=== PATIENT | male | born 1955 | race Caucasian/White ===

== ENCOUNTER 2021-02-10 06:06 | Day surgery (SDC) | payer BC, OTHER ==
[2021-02-05 16:54] VITALS: BMI 28.7
[2021-02-10] MEDS ORDERED: MIDAZOLAM HCL 2 MG/2 ML SINGLE DOSE VIAL ONE (06:51)
[2021-02-10] MEDS ORDERED: ROPIVACAINE HCL 0.5% 30ML VIAL ONE (06:51)
[2021-02-10] MEDS ORDERED: EPINEPHrine 1:1,000 1 MG/1 ML - 30ML VIAL (INJECTION) ONE (07:19)
[2021-02-10] MEDS ORDERED: BUPIVACAINE HCL/EPINEPHRINE/PF 30 ML VIAL IJ ONE (07:19)
[2021-02-10] MEDS ORDERED: PROPOFOL 20 ML ONE ×3 (07:39)
[2021-02-10] MEDS ORDERED: SUCCINYLCHOLINE CHLORIDE 200 MG/10 ML SYRINGE ONE (07:39)
[2021-02-10] MEDS ORDERED: ONDANSETRON 4 MG/2 ML VIAL ONE (07:53)
[2021-02-10] MEDS ORDERED: DEXAMETHASONE SOD PHOSPHATE 4 MG/1 ML VIAL ONE (07:53)
[2021-02-10] MEDS ORDERED: ceFAZolin SODIUM 1 GM VIAL ONE (07:53)
[2021-02-10] MEDS ORDERED: KETOROLAC TROMETHAMINE 30 MG/1 ML VIAL ONE (07:53)
[2021-02-10] MEDS ORDERED: oxyCODONE HCL 5 MG TABLET ONE (08:58)
[2021-02-10] MEDS ORDERED: oxyCODONE HCL 5 MG TABLET PO ONE (09:00)
[2021-02-10 09:08] VITALS: PULSE 62; TEMP 97.8
[2021-02-10 09:54] VITALS: BP 135/73
[2021-02-10] MEDS ORDERED: PROMETHAZINE HCL 25 MG/1 ML VIAL IVPB PRN (10:10)
[2021-02-10] MEDS ORDERED: oxyCODONE HCL 5 MG TABLET PO PRN ×2 (10:10)
[2021-02-10] MEDS ORDERED: ONDANSETRON 4 MG/2 ML VIAL IVPUSH PRN (10:10)
== END 2021-02-10 10:05 | disposition home or self-care (01) ==
LOC: FASU 06:06
PROVIDERS: ATTEND Orthopaedic Surgery
PROC: 0RBK4ZZ Excision of Left Shoulder Joint, Percutaneous Endoscopic Approach (ICD-10-PCS; principal; 2021-02-10 08:09)
DX: M75.42 Impingement syndrome of left shoulder (principal)